=== PATIENT | male | born 1955 | race Caucasian/White ===

== ENCOUNTER 2019-05-19 06:46 | Emergency (ER) | payer OTHER ==
[~2019-05-19] VITALS: Ht 180.3 cm; Wt 103.6 kg
[2019-05-19] MEDS ORDERED: ISOVUE-370 76% 100ML VIAL (Q9967) As Ordered ONE (07:07)
[2019-05-19] MEDS ORDERED: NS 1,000 ML IV ONE (07:15)
[2019-05-19 07:26] LABS: BASO % 0.5 % (0.0-1.0); EOS # 0.2 10^3/uL (0.0-0.50); EOS % 2.1 % (0.0-3.0); HEMATOCRIT 44.9 % (42.0-52.0); HEMOGLOBIN 15.8 g/dl (13.5-17.5); LYMPH # 1.9 10^3/uL (1.5-4.5); LYMPH % 25.8 % (24.0-44.0); MEAN CORPUSCULAR HEMOGLOBIN 34.1 pg (27.0-33.0); MEAN CORPUSCULAR HGB CONC 35.2 g/dl (32.0-36.5); MEAN CORPUSCULAR VOLUME 96.8 fl (80.0-96.0); MONO # 0.8 10^3/uL (0.0-0.8); MONO % 11.3 % (0.0-5.0); NEUTROPHILS # 4.4 10^3/uL (1.8-7.7); NEUTROPHILS % 59.8 % (36.0-66.0); PLATELET COUNT, AUTOMATED 172 10^3/uL (150-450); RED BLOOD COUNT 4.64 10^6/uL (4.30-6.10); WHITE BLOOD COUNT 7.3 10^3/uL (4.0-10.0)
[2019-05-19] MEDS ORDERED: RA G1TAB11 PO (07:34)
[2019-05-19] MEDS ORDERED: FISH1000 PO (07:34)
[2019-05-19] MEDS ORDERED: MULT1TAB8 PO (07:34)
[2019-05-19] MEDS ORDERED: CVS1000C17 PO (07:34)
--- NOTE | 2019-05-19 07:59 | REPVR ---
EXAM: CT Chest With Contrast EXAM DATE/TIME: 05/19/2019 7:36 AM CLINICAL HISTORY: 63 years old, male; Other: Back pain; Additional info: Fall, left postr rib pain, luq pain - check poc chem8 TECHNIQUE: Imaging protocol: Computed tomography images of the chest with intravenous contrast. Radiation optimization: All CT scans at this facility use at least one of these dose optimization techniques: automated exposure control; mA and/or kV adjustment per patient size (includes targeted exams where dose is matched to clinical indication); or iterative reconstruction. Contrast material: ISOVUE 370; Contrast volume: 100 ml; Contrast route: IV; COMPARISON: CR Chest, 1 view 05/19/2019 7:16 AM (report not provided) FINDINGS: Lungs: Mild atelectasis/scarring is present in the left lower lobe. There are few scattered calcified granulomas bilaterally. Many of these are pleural-based. The lungs are otherwise clear. The central airways appear patent. Pleural space: No pleural effusion or pneumothorax. Heart: Unremarkable. No cardiomegaly. No pericardial effusion. Mediastinum: No mediastinal hematoma is identified. Aorta: The thoracic aorta is nonaneurysmal. Atherosclerotic vascular calcifications are noted. Lymph nodes: Unremarkable. No enlarged lymph nodes. Bones/joints: There are acute, mildly displaced fractures of the left 10th and 11th ribs posterolaterally. No other acute fracture the visualized skeleton is identified. Degenerative changes involve the spine and shoulders. Soft tissues: Unremarkable. Other findings: Dedicated abdominal CT has been performed, and findings below the diaphragm will be reported separately. IMPRESSION: Acute, displaced fractures of the left 10th and 11th ribs. No other evidence for acute intrathoracic injury. Electronically signed by: Julio Garcia On 05/19/2019 07:59:16 AM
--- NOTE | 2019-05-19 08:05 | REPVR ---
EXAM: CT Abdomen and Pelvis With Contrast EXAM DATE/TIME: 05/19/2019 7:36 AM CLINICAL HISTORY: 63 years old, male; Abdominal pain; Localized; Left upper quadrant (luq); Additional info: Fall, left postr rib pain, luq pain - check poc chem8 TECHNIQUE: Imaging protocol: Computed tomography images of the abdomen and pelvis with intravenous contrast. Radiation optimization: All CT scans at this facility use at least one of these dose optimization techniques: automated exposure control; mA and/or kV adjustment per patient size (includes targeted exams where dose is matched to clinical indication); or iterative reconstruction. Contrast material: ISOVUE 370; Contrast volume: 100 ml; Contrast route: IV; COMPARISON: CT ABD PELVIS W/O CONTRAST 12/09/2012 8:35 PM (report not provided) FINDINGS: Lungs: See separate chest CT report for findings above the diaphragm. Liver: The liver is again fatty in density. It appears otherwise unremarkable. Gallbladder and bile ducts: No gallstones are evident, but ultrasound would be more sensitive. No gross biliary ductal dilatation. Pancreas: Normal. No ductal dilation. Spleen: Multiple splenules are again present. The spleen itself appears unremarkable. Adrenals: Normal. No mass. Kidneys and ureters: The left kidney contains a 1.5 cm cyst. It appears otherwise unremarkable. The right kidney appears unremarkable. Stomach and bowel: The unopacified small bowel is not significantly distended to suggest obstruction. There is mild descending and sigmoid colonic diverticulosis without evidence for diverticulitis. The large bowel is otherwise grossly unremarkable in appearance. Appendix: No evidence of appendicitis. Intraperitoneal space: Normal. No free air. No significant fluid collection. Vasculature: The abdominal aorta is nonaneurysmal. The left renal vein is again retroaortic. Atherosclerotic vascular calcifications are again present. Lymph nodes: Normal. No enlarged lymph nodes. Bladder: Unremarkable as visualized. Reproductive: Unremarkable as visualized. Bones/joints: As on the chest CT, there are acute, mildly displaced fractures of the left 10th and 11th ribs. No other acute fracture the visualized skeleton is identified. Degenerative changes involve the spine and hips. Soft tissues: There are again small fat containing umbilical and bilateral inguinal hernias. IMPRESSION: 1. Acute fractures of the left 10th and 11th ribs. No other evidence for acute intra-abdominal or pelvic injury. 2. Mild left-sided colonic diverticulosis without evidence for diverticulitis. 3. Other nonurgent findings similar to 12/09/12 as described. Electronically signed by: Julio Garcia On 05/19/2019 08:04:40 AM
[2019-05-19] MEDS ORDERED: IBUP-1022 PO (08:11)
[2019-05-19] MEDS ORDERED: NORC1TAB7 PO (08:12)
[2019-05-19] MEDS ORDERED: IBUPROFEN 800 MG TAB PO ONE (08:15)
[2019-05-19] MEDS ORDERED: NORCO, ANEXSIA 5/325MG TABLET (HYDROcodone/ACETAMINOPHEN) PO ONE (08:15)
[2019-05-19 08:23] VITALS: BP 174/93
--- NOTE | 2019-05-19 10:07 | REP ---
Portable chest, single AP view with the patient sitting: There are no comparisons. There is no pneumothorax, hemothorax or pulmonary contusion. There is a faintly visible 11 ml nodular density peripherally in the left lung. Lung zaragoza are otherwise clear. Cardiac size is upper normal. The cas, mediastinum, and skeletal structures are unremarkable. Impression: No acute cardiopulmonary findings. Faintly visible nodular density in the left lung. Electronically Signed by Terence Nicole MD 05/19/2019 09:58 A
--- NOTE | 2019-05-19 19:36 | ED PDOC ---
Post-Departure Follow-Up certified letter sent to pt re formal read of cxr. see report. needs fu. obtain pcp name and fax.if no pcp refer to [facility] and fax report there Vlad Dumont MD May 19, 2019 19:36
== END 2019-05-19 08:32 | disposition home or self-care (01) ==
LOC: M ED 06:46
DX: S22.42XA Multiple fractures of ribs, left side, initial encounter for closed fracture (principal); W01.0XXA Fall on same level from slipping, tripping and stumbling without subsequent striking against object, initial encounter; Y92.092 Bedroom in other non-institutional residence as the place of occurrence of the external cause; Y93.89 Activity, other specified; Y99.9 Unspecified external cause status; R91.1 Solitary pulmonary nodule; K57.32 Diverticulitis of large intestine without perforation or abscess without bleeding; Z79.899 Other long term (current) drug therapy
CPT/HCPCS: 71045; 71260; 74177; 80047; 85025; 86850; 86900; 86901; 96360; 99284; Q9967

== ENCOUNTER → 2019-08-16 | Outpatient (CLI) | payer OTHER ==
[~2019-08-16] MED LIST: CVS1000C17 PO; FISH1000 PO; IBUP-1022 PO; MULT1TAB8 PO; NORC1TAB7 PO; RA G1TAB11 PO
--- NOTE | 2019-08-16 08:03 | REP ---
A right hip: Two views. History: Pain. Findings: There is moderate osteoarthritis of the right hip with significant superior joint space narrowing, sclerosis and osteophyte formation. Periarticular soft tissues are unremarkable. Femoral head remains rounded. Impression: Moderate osteoarthritis right hip. Electronically Signed by Tucker Odell MD 08/16/2019 09:48 A
== END ==
LOC: M RAD 07:28
PROVIDERS: ATTEND Family Medicine
DX: M25.551 Pain in right hip (principal)

== ENCOUNTER → 2019-09-14 | Outpatient (CLI) | payer OTHER ==
--- NOTE | 2019-09-14 08:04 | REP ---
Abdominal aortic sonography: History: Screening for abdominal aortic aneurysm. . Findings: Scanning through the retroperitoneum demonstrates that the abdominal aorta is normal in caliber at the level of the diaphragmatic hiatus measuring 2.6 x 2.9 cm in AP by transverse dimension respectively. The abdominal aorta is obscured by bowel gas at the level of the main renal arteries. The distal aorta tapers to 1.8 x 2.0 cm AP by transverse dimension. The right and left common iliac arteries are normal measuring 1.3 and 1.2 cm in AP dimension respectively. No aneurysm is seen. No periaortic disease is observed. Impression: Negative abdominal aortic sonography. Electronically Signed by Tucker Odell MD 09/14/2019 07:55 A
[2019-09-14 08:19] LABS: ALBUMIN 3.7 GM/DL (3.2-5.2); ALT/SGPT 36 U/L (12-78); BILIRUBIN,TOTAL 0.6 MG/DL (0.2-1.0); BLOOD UREA NITROGEN 10 MG/DL (7-18); CALCIUM LEVEL 9.3 MG/DL (8.8-10.2); CARBON DIOXIDE LEVEL 29 MEQ/L (21-32); CHLORIDE LEVEL 106 MEQ/L (98-107); CHOLESTEROL LEVEL 237 MG/DL (<200); CHOLESTEROL RISK RATIO 4.647 (<5); CREATININE FOR GFR 0.91 MG/DL (0.70-1.30); GLOMERULAR FILTRATION RATE > 60.0 (>49); GLUCOSE, FASTING 93 MG/DL (70-100); HDL CHOLESTEROL 51 MG/DL (>40); LDL CHOLESTEROL 161 MG/DL (<100); NON-HDL-C 186 MG/DL; POTASSIUM SERUM 4.2 MEQ/L (3.5-5.1); SODIUM LEVEL 140 MEQ/L (136-145); TOTAL PROTEIN 7.6 GM/DL (6.4-8.2); TRIGLYCERIDES LEVEL 123 MG/DL (<150)
== END ==
LOC: M RAD 07:21
PROVIDERS: ATTEND Family Medicine
DX: Z00.00 Encounter for general adult medical examination without abnormal findings (principal); Z12.5 Encounter for screening for malignant neoplasm of prostate; Z13.1 Encounter for screening for diabetes mellitus; Z13.220 Encounter for screening for lipoid disorders; Z13.6 Encounter for screening for cardiovascular disorders
CPT/HCPCS: 36415; 76775; 80053; 80061; 84443; G0103

== ENCOUNTER → 2019-09-18 | Outpatient (CLI) | payer OTHER ==
[2019-09-18 14:04] LABS: HEMATOCRIT 46.6 % (42.0-52.0); HEMOGLOBIN 16.5 g/dl (13.5-17.5); MEAN CORPUSCULAR HEMOGLOBIN 33.3 pg (27.0-33.0); MEAN CORPUSCULAR HGB CONC 35.4 g/dl (32.0-36.5); PLATELET COUNT, AUTOMATED 235 10^3/uL (150-450); RED BLOOD COUNT 4.96 10^6/uL (4.30-6.10); WHITE BLOOD COUNT 11.7 10^3/uL (4.0-10.0)
== END ==
LOC: M LAB 13:24
PROVIDERS: ATTEND Physician Assistant Medical
DX: R19.5 Other fecal abnormalities (principal)

== ENCOUNTER 2019-11-13 07:39 | Day surgery (SDC) | payer OTHER ==
[~2019-11-13] VITALS: Ht 180.3 cm; Wt 96.7 kg
[~2019-11-13 07:39] MED LIST changes: +CBD cream TOP; +NS 1,000 ML IV ONE; +VITA100054 PO; +propofoL 200 MG/20 ML VIAL As Ordered ONE
[2019-11-13] MEDS ORDERED: LIDOCAINE 2% INJ 100 MG/5 ML SDV (FOR ANES.) As Ordered ONE (07:40)
[2019-11-13] MEDS ORDERED: propofoL 200 MG/20 ML VIAL As Ordered ONE ×2 (08:50→09:09)
--- NOTE | 2019-11-13 09:31 | ROOR ---
Patient Name: Nimesh Desir Procedure Date: 11/13/2019 8:30 AM Date of : 1955 Age: 63 Room: [facility] Gender: Male Note Status: Finalized Procedure: Colonoscopy Indications: Positive Cologuard test Providers: David Rivas MD Referring MD: Melo Wang Do Requesting Provider: Medicines: Monitored Anesthesia Care Complications: No immediate complications. Procedure: Pre-Anesthesia Assessment: - Prior to the procedure, a History and Physical was performed, and patient medications and allergies were reviewed. The patient is competent. The risks and benefits of the procedure and the sedation options and risks were discussed with the patient. All questions were answered and informed consent was obtained. Patient identification and proposed procedure were verified by the physician, the nurse and the anesthesiologist in the procedure room. Mental Status Examination: alert and oriented. Airway Examination: normal oropharyngeal airway and neck mobility. Respiratory Examination: clear to auscultation. CV Examination: normal. Prophylactic Antibiotics: The patient does not require prophylactic antibiotics. Prior Anticoagulants: The patient has taken no previous anticoagulant or antiplatelet agents. ASA Grade Assessment: II - A patient with mild systemic disease. After reviewing the risks and benefits, the patient was deemed in satisfactory condition to undergo the procedure. The anesthesia plan was to use monitored anesthesia care (MAC). Immediately prior to administration of medications, the patient was re-assessed for adequacy to receive sedatives. The heart rate, respiratory rate, oxygen saturations, blood pressure, adequacy of pulmonary ventilation, and response to care were monitored throughout the procedure. The physical status of the patient was re-assessed after the procedure. The colonoscopy was performed without difficulty. The patient tolerated the procedure well. The quality of the bowel preparation was good. The terminal ileum, ileocecal valve, appendiceal orifice, and rectum were photographed. Scope insertion time was 2 minutes. Scope withdrawal time was 8 minutes. The total duration of the procedure was 10 minutes. The Colonoscope was introduced through the anus and advanced to the terminal ileum, with identification of the appendiceal orifice and IC valve. Findings: The perianal and digital rectal examinations were normal. The terminal ileum appeared normal. A 8 mm polyp was found in the cecum. The polyp was sessile. The polyp was removed with a hot snare. Resection and retrieval were complete. Verification of patient identification for the specimen was done by the physician and nurse using the patient's name, date and medical record number. Estimated blood loss was minimal. Eight sessile and semi-pedunculated polyps were found in the recto-sigmoid colon, descending colon, transverse colon and ascending colon. The polyps were 4 to 15 mm in size. These polyps were removed with a hot snare. Resection and retrieval were complete. A 20 mm polyp was found in the recto-sigmoid colon. The polyp was pedunculated. The polyp was removed with a hot snare. Resection and retrieval were complete. To close a defect after polypectomy, one hemostatic clip was successfully placed. There was no bleeding at the end of the procedure. Multiple small and large-mouthed diverticula were found from sigmoid to ascending colon. There was no evidence of diverticular bleeding. Non-bleeding external and internal hemorrhoids were found during retroflexion. The hemorrhoids were large. Impression: - The examined portion of the ileum was normal. - One 8 mm polyp in the cecum, removed with a hot snare. Resected and retrieved. - Eight 4 to 15 mm polyps at the recto-sigmoid colon, in the descending colon, in the transverse colon and in the ascending colon, removed with a hot snare. Resected and retrieved. - One 20 mm polyp at the recto-sigmoid colon, removed with a hot snare. Resected and retrieved. Clip was placed. - Severe diverticulosis from sigmoid to ascending colon. There was no evidence of diverticular bleeding. - Non-bleeding external and internal hemorrhoids. Recommendation: - Patient has a contact number available for emergencies. The signs and symptoms of potential delayed complications were discussed with the patient. Return to normal activities tomorrow. Written discharge instructions were provided to the patient. - Clear liquid diet for 1 day, then advance as tolerated to high fiber diet. - Continue present medications. - Miralax 1 capful (17 grams) in 8 ounces of water PO daily for 5 days. - Await pathology results. - Repeat colonoscopy in 1 - 3 years for surveillance based on pathology results. - Telephone GI clinic for pathology results in 2 weeks. - Telephone GI clinic if symptomatic tomorrow. - Return to primary care physician. David Rivas MD David Rivas MD 11/13/2019 9:31:19 AM Electronically signed by David Rivas MD Number of Addenda: 0 Note Initiated On: 11/13/2019 8:04 AM Estimated Blood Loss: Estimated blood loss was minimal.
[2019-11-13 09:51] VITALS: BP 134/70
== END 2019-11-13 13:26 | disposition home or self-care (01) ==
LOC: M OPP 07:39
PROVIDERS: ATTEND Internal Medicine Gastroenterology
DX: K64.8 Other hemorrhoids (principal); K63.5 Polyp of colon; K57.30 Diverticulosis of large intestine without perforation or abscess without bleeding; R19.5 Other fecal abnormalities; F17.210 Nicotine dependence, cigarettes, uncomplicated

== ENCOUNTER → 2021-01-02 | Outpatient (CLI) | payer MEDICARE, OTHER ==
[~2021-01-02] MED LIST changes: -NS 1,000 ML IV ONE; -propofoL 200 MG/20 ML VIAL As Ordered ONE
--- NOTE | 2021-01-02 09:37 | REP ---
INDICATION: PAIN. COMPARISON: Right rib series dated 08/16/2019. TECHNIQUE: AP view of the pelvis with the patient standing, single view; and right hip two views. FINDINGS: AP pelvis, patient standing: There is marked right hip osteoarthritis with virtually no remaining joint space superiorly with bone on bone. There is no flattening or deformity of the femoral head but there is very slight irregularity of the superior cortex. There is osteophytic growth. Right hip two views: There is marked joint space narrowing and mild irregularity the femoral head cortex and osteophytic growth compatible with advanced osteoarthritis. IMPRESSION: Advanced right hip osteoarthritis. She <Electronically signed by Terence Nicole > 01/02/21 0933
== END ==
LOC: M SOG 08:53
PROVIDERS: ATTEND Family Medicine
DX: M25.551 Pain in right hip (principal)

== ENCOUNTER 2021-01-10 12:19 | Outpatient (RCR) | payer MEDICARE ==
[2021-01-24] MEDS ORDERED: CO Q1CAP2 PO (12:09)
[2021-01-24] MEDS ORDERED: VITATAB73 PO (12:09)
[2021-01-24] MEDS ORDERED: RED600TA PO (12:09)
[2021-01-24] MEDS ORDERED: D-101000 PO (12:09)
== END 2021-01-24 ==
LOC: M PT 12:19
PROVIDERS: ATTEND Family Medicine
DX: M16.31 Unilateral osteoarthritis resulting from hip dysplasia, right hip (principal)

== ENCOUNTER → 2021-01-24 | Outpatient (CLI) | payer MEDICARE ==
[~2021-01-24] MED LIST changes: +CO Q1CAP2 PO; +D-101000 PO; +RED600TA PO; +VITATAB73 PO
[2021-01-24 09:14] LABS: HEMATOCRIT 48.1 % (42.0-52.0); HEMOGLOBIN 16.2 g/dl (13.5-17.5); MEAN CORPUSCULAR HEMOGLOBIN 32.1 pg (27.0-33.0); MEAN CORPUSCULAR HGB CONC 33.7 g/dl (32.0-36.5); MEAN CORPUSCULAR VOLUME 95.4 fl (80.0-96.0); PLATELET COUNT, AUTOMATED 208 10^3/uL (150-450); RED BLOOD COUNT 5.04 10^6/uL (4.30-6.10); WHITE BLOOD COUNT 9.7 10^3/uL (4.0-10.0)
[2021-01-24 09:38] LABS: ALBUMIN 4.1 GM/DL (3.2-5.2); ALT/SGPT 39 U/L (12-78); BILIRUBIN,TOTAL 0.6 MG/DL (0.2-1.0); BLOOD UREA NITROGEN 10 MG/DL (7-18); CARBON DIOXIDE LEVEL 31 MEQ/L (21-32); CHLORIDE LEVEL 103 MEQ/L (98-107); CREATININE FOR GFR 0.76 MG/DL (0.70-1.30); GLOMERULAR FILTRATION RATE > 60.0 (>49); GLUCOSE, FASTING 89 MG/DL (70-100); POTASSIUM SERUM 4.3 MEQ/L (3.5-5.1); SODIUM LEVEL 137 MEQ/L (136-145); TOTAL PROTEIN 7.7 GM/DL (6.4-8.2)
--- NOTE | 2021-01-24 10:08 | REP ---
INDICATION: UNILATERAL OSTEOARTHITIS RESULTING FROM HIP DYSPLASIA,- LABS 1ST COMPARISON: 05/19/2019. TECHNIQUE: PA/Lateral FINDINGS: Lungs: Clear, no infiltrate. Subtle calcified pleural plaques are again seen projecting over the mid lung zones. Heart: Normal in size. Mediastinum: Mediastinal silhouette unremarkable. Pleural angles: Unremarkable.. Bones and soft tissues: There are degenerative changes of the spine without compression deformity. IMPRESSION: No acute pulmonary disease. <Electronically signed by Terence Keene > 01/24/21 1000
== END ==
LOC: M LAB 07:52
PROVIDERS: ATTEND Student in an Organized Health Care Education/Training Program
DX: M16.31 Unilateral osteoarthritis resulting from hip dysplasia, right hip (principal); M25.551 Pain in right hip

== ENCOUNTER → 2021-01-30 | Outpatient (CLI) | payer OTHER, MEDICARE | LOC: M LABSMTC 09:59 | PROVIDERS: ATTEND Anesthesiology | DX: Z01.818 Encounter for other preprocedural examination (principal); Z11.52 Encounter for screening for COVID-19 ==

== ENCOUNTER 2021-02-04 06:00 | Inpatient (IN) | payer MEDICARE ==
[2021-02-04] VITALS (14 sets, daily range): BP systolic 104–141; BP diastolic 68–87
[~2021-02-04] VITALS: Ht 180.3 cm; Wt 103.1 kg
[~2021-02-04 06:00] MED LIST changes: +ACETAMINOPHEN 500 MG TAB PO ONE; +LR 1,000 ML IV ONE; +NAPROXEN 250 MG TAB PO ONE; +NS 1,000 ML IV SCH; +PREGABALIN 25 MG CAP (LYRICA) PO ONE; +TRANEXAMIC ACID INJection 1,000 MG in NS 50 ML IV ONE; +ceFAZolin SOD 2 GM in IV 1 EA IV ONE; +dexameTHASONE 4 MG/ML 1ML VIAL (J1100 PER 1MG) IV ONE
[2021-02-04] MEDS ORDERED: TRANEXAMIC ACID 100 MG/ML 10ML VIAL As Ordered ONE ×2 (07:11→07:19)
[2021-02-04] MEDS ORDERED: MIDAZOLAM INJ 2MG/2ML VIAL (J2250 PER 1MG) As Ordered ONE (08:04)
[2021-02-04] MEDS ORDERED: fentaNYL 100 MCG/2 ML INJECTION (J3010) As Ordered ONE ×2 (08:04→10:42)
[2021-02-04] MEDS ORDERED: propofoL 200 MG/20 ML VIAL As Ordered ONE ×2 (08:04→09:22)
[2021-02-04] MEDS ORDERED: LIDOCAINE 2% 100MG/5ML SDV (FOR ANES.) As Ordered ONE (08:04)
[2021-02-04] MEDS ORDERED: PHENYLephrine 500MCG 5ML (100MCG/ML) SYRINGE As Ordered ONE ×2 (08:35→09:22)
[2021-02-04] MEDS ORDERED: ePHEDrine SULFATE 25 MG/5 ML(5MG/ML) SYRINGE As Ordered ONE ×3 (08:35→09:22)
[2021-02-04] MEDS ORDERED: ONDANSETRON 4MG/2ML VIAL As Ordered ONE (08:45)
[2021-02-04] MEDS: ROPIVA 125MG/EPINEPH 0.25MG/CLONID 40MCG/KETOR 15MG IN NS 50ML SYRINGE IA SCH ×2 (10:08→10:09)
[2021-02-04] MEDS ORDERED: LR 1,000 ML IV SCH (11:20)
[2021-02-04] MEDS ORDERED: ONDANSETRON 4MG/2ML VIAL IV PRN ×2 (11:20→11:40)
[2021-02-04] MEDS ORDERED: oxyCODONE 5MG TAB PO PRN ×2 (11:20→11:35)
[2021-02-04] MEDS ORDERED: HYDROMORPHONE HCL 0.5 MG/ 0.5 ML SYRINGE (J1170 PER 1) IV PRN (11:20)
[2021-02-04] MEDS ORDERED: fentaNYL 100 MCG/2 ML INJECTION (J3010) IV PRN (11:20)
[2021-02-04] MEDS ORDERED: MORPHINE 10 MG/ML 1ML VIAL (J2270) IV PRN (11:30)
[2021-02-04] MEDS ORDERED: ACETAMINOPHEN TAB 650MG DOSE (2X325MG) PO PRN (11:30)
[2021-02-04] MEDS ORDERED: SENOKOT S TAB PO PRN (11:30)
[2021-02-04] MEDS ORDERED: MOM 30ML SUSPENSION UDC PO PRN (11:30)
[2021-02-04] MEDS ORDERED: PERCOCET 5MG/325MG TAB PO PRN ×2 (11:30)
[2021-02-04] MEDS ORDERED: traMADol 50 MG TAB PO PRN ×2 (11:40)
--- NOTE | 2021-02-04 11:41 | REP ---
INDICATION: POST OP IN PACU/ PELVIS LOW SET. COMPARISON: 01/02/2021. TECHNIQUE: AP view pelvis, single view right hip. FINDINGS: There is placement of a total right hip prosthesis which appears to be in good position. Osseous structures are intact and well aligned. Rounded calcification is seen lateral to the proximal right femur measuring approximately 1.5 cm in diameter. There is postsurgical air in the soft tissues lateral to the right hip. IMPRESSION: Right hip prosthesis as above. <Electronically signed by Terence Keene > 02/04/21 1134
[2021-02-04] MEDS ORDERED: SENNA 8.6 MG TAB (SENOKOT) PO PRN (11:50)
--- NOTE | 2021-02-04 12:12 | HPEPDOC ---
[facility] Medical History & Physical Date of Admission February 04, 2021 Date of Service: February 04, 2021 History and Physical CHIEF COMPLAINT: Right hip pain HISTORY OF PRESENT ILLNESS: 65-year-old with right hip oa with limitations of daily living failed on conservative mgt, tonsillectomy, varicose vein surgery and kidney stone removal, status post right hip replacement. Hospitalist was asked to admit the patient for observation, physical therapy and pain control. Patient denies weight gain, weight loss, changes in appetite, nausea, vomiting, diarrhea, abdominal pain, bright red blood per rectum, melena, black tarry stools. He denies any sore throat, visual changes, tinnitus, vertigo, bilateral upper and lower extremity weakness, paresthesias, shortness of breath, chest pain, pressure, tightness, palpitations, lightheadedness, near syncope. Denies any polyphagia, polydipsia, polyuria, dysuria, urgency, frequency. Right hip pain currently is 4 out of 10 on a pain scale and does not want any pain medications. He has no other complaints. 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 02/04/2001 SOCIAL HISTORY: , Lives alone, has a son who lives one hour away. He has a cane, walker expanded his deck in the back has some steps going into the home. Prior smoker, smokes less than a half a pack a day for several years and years ago. Denies any alcohol abuse, but had been drinking due to severe pain. Recently, no recreational drug use. Retired, previously worked as a marketing area manager FAMILY HISTORY: . Father alive, age 90 had a hip replacement and hypertension. Mother age 83 , unknown medical reasons ALLERGIES: Please see below. REVIEW OF SYSTEMS: 10 point review of systems negative aside from positive findings in HPI HOME MEDICATIONS: Please see below. PHYSICAL EXAMINATION: VITAL SIGNS: See below GENERAL APPEARANCE: No distress. No pallor, icterus or jaundice. HEENT: No JVD, thyromegaly or cervical lymphadenopathy. Pupils equally round and reactive to light and accommodation. Dry mucous membranes CARDIOVASCULAR: S1, S2, regular rate, rhythm LUNGS: Clear to auscultation. Air entry is equal bilaterally ABDOMEN: Positive bowel sounds, soft, nontender, nondistended. MUSCULOSKELETAL: Postop right hip. Skin warm, dry, well perfused, pink in color EXTREMITIES: No cyanosis, clubbing or pitting edema. No cyanosis, clubbing or pitting edema MICROBIOLOGY: Please see below. , IMAGING STUDIES: SEE BELOW ASSESSMENT: . .65-year-old with right hip OA, tonsillectomy, varicose vein surgery and kidney stone removal, status post right hip replacement. Hospitalist was asked to admit the patient for observation, physical therapy and pain control. Patient denies weight gain, weight loss, changes in appetite, nausea, vomiting, diarrhea, abdominal pain, bright red blood per rectum, melena, black tarry stools. He denies any sore throat, visual changes, tinnitus, vertigo, bilateral upper and lower extremity weakness, paresthesias, shortness of breath, chest pain, pressure, tightness, palpitations, lightheadedness, near syncope. Denies any polyphagia, polydipsia, polyuria, dysuria, urgency, frequency. Right hip pain currently is 4 out of 10 on a pain scale and does not want any pain medications. He has no other complaints. Right hip osteoarthritis limiting his activities of daily living. Status post right JOE -Postop management per orthopedic surgery including DVT prophylaxis. Pain control, bowel regimen. Perioperative antibiotics. Activity level -PTOT PMR consulted -When necessary morphine for breakthrough pain 1-2 tablets of Percocet as needed -Antiemetics as needed History kidney stones -Asymptomatic Obesity, BMI 30.7 -Complicating care Diet regular DVT prophylaxis and aspirin 81 mg twice a day per orthopedic surgical recommendations Disposition PT, OT A RU screen code status: full code Vital Signs Vital Signs Date Time Temp Pulse Resp B/P (MAP) Pulse Ox O2 Delivery O2 Flow Rate FiO2 02/04/21 06:42 96.3 86 18 144/84 (104) 97 Room Air Home Medications Scheduled Cholecalciferol (Vitamin D3) (Vitamin D3) 25 Mcg Capsule, 25 MCG PO DAILY Glucosam/Chond-MSM 2/C/D3/Jace (Xxlbrtrgod-Fasxwxxyyio-SMU Tab) 1 Each Tablet, 1 TAB PO DAILY Haugan-3 Fatty Acids/Fish Oil (Fish Oil 1,000 mg Capsule) 1 Each Capsule, 1 CAP PO DAILY Red Yeast Rice (Red Yeast Rice) 600 Mg Tablet, 1,200 MG PO DAILY Ubidecarenone (Co Q-10) 200 Mg Capsule, 200 MG PO DAILY Vitamin B Complex (Vitamin B Complex) 1 Each Tablet, 1 TAB PO DAILY Miscellaneous Medications Multivitamin (Multi-Vitamin Daily) 1 Each Tablet, 1 TAB PO Allergies Coded Allergies: No Known Allergies (Unverified , 01/24/21) A-FIB/CHADSVASC A-FIB History Current/History of A-Fib/PAF?: No Current PO Anticoag Therapy: No Age/Risk Factor Scoring CHADSVASC: CHADSVASC Response (Comments) Value Age Risk Factor Age 65-74 years old 1 Gender Risk Factor Male 0 Hx of CHF No 0 Hx of HTN No 0 Hx of Stroke/TIA/or VTE No 0 Hx of Diabetes No 0 Hx of Vascular Disease No 0 Total 1 Treatment Treatment ordered: NONE STEVE MCCOY MD February 04, 2021 11:34
[2021-02-04] MEDS: ASCORBIC ACID 500 MG TAB PO SCH (13:39)
[2021-02-04] MEDS: ACETAMINOPHEN TAB 650MG DOSE (2X325MG) PO SCH ×2 (13:40→18:48)
[2021-02-04] MEDS: LR 1,000 ML IV SCH ×2 (13:40→21:30)
--- NOTE | 2021-02-04 15:27 | ROOPDOC ---
[facility] Report Of Operation Report of Operation DATE OF PROCEDURE: 02/04/21 PREPROCEDURE DIAGNOSES: Right hip osteoarthritis. POSTPROCEDURE DIAGNOSES: Right hip osteoarthritis with coxa magna. PROCEDURE: Right total hip arthroplasty with MDM liner IC 10. Modifier 22:50% more time and 50% more physical effort was utilized during this procedure. As result of the patient's size and musculature surrounding the hip. This made the exposure difficult, as well as the dislocation of the femoral head.. SURGEON: Faraz Olivia MD TERMINAL OPERATIONS SUPERVISOR: Merary Wu LPN ANESTHESIA: Spinal. ESTIMATED BLOOD LOSS: Approximately less than 300 mL mL. COMPLICATIONS: No known complications. REMARKS: Striker components Accolade 127 degree neck angle hip stem. Size #7 stem length 114 mm Ceramic femoral head 28 mm +4 mm neck length Trident 2 tritanium 58 mm cup MDM liner, cementless, 46 mm Pentecostal MDM X3 insert, 28 mm iD for size 28/52, size 46F PROCEDURE NOTE: The patient was seen in the preoperative area and the right lower extremity was marked. I reviewed his recent past medical history. He is found to be grossly neurovascularly intact prior to surgery to the right lower extremity.. DESCRIPTION OF PROCEDURE: The patient was brought to the operating room and a surgical checklist was carried out. The patient was then positioned on the bed and a spinal anesthetic was carried out. The patient was then placed in the left lateral decubitus position and appropriately padded with an axillary roll as well as other padding as appropriate in the standard fashion. Once he was positioned in the left lateral decubitus position, the right lower extremity and hip were cleansed with a chlorhexidine brush followed by 2 times alcohol swab scrub followed by a hydrogen peroxide preparation of the right hip region. He then underwent 2 times chlorhexidine scrub preps. The patient then underwent a standard sterile prep and drape. A surgical safety checklist, and possible was carried out. Incision then began centered over the right greater trochanteric region. Skin was incised down through subcutaneous fat down to the fascial layer. The modified Hopkins approach was utilized and the fascia was split with the cautery. Casillas scissors were used to extend the split. Once the abductor muscles were identified, Casillas scissors were used to identify the neck region and splitting roughly around the anterior third and the posterior two thirds of the abductors and capsule. Electrocautery was used to carry this split through and down exposing in one layer. The greater trochanteric region. The proximal anterior portion of the femur was skeletonized in this fashion. Using electrocautery and reflecting the soft tissue layer. At that point, the lateral cautery was used to partially dis sected the capsule and soft tissues off of the neck and expose the acetabular rim. Hohmann retractors were placed. The head was demonstrated to be significantly large with coxa magna. There was some large proximal trochanteric anterior osteophytes which were removed with a rongeur. Once sufficient soft tissue had been removed in order to allow dislocation of the hip, a Steinmann pin was placed in the pelvis just proximal to the acetabular rim through the soft tissue stab incision. A similar Steinmann pin w as used to mallet. A dimple into the proximal greater trochanter region. This was measured to allow comparison of leg length intraoperatively. Several times were made at attempting to dislocate the femoral head. The femoral head demonstrated some coxa magna, so this was quite difficult. There is also difficulty in exposing the hip joint as a result of the patient's muscular bulk. Overall, the exposure and dissection took at least twice as long as typically performed. Once a Woodson was used to help identify the joint space around the femoral head. It was able to be dislocated. It was quite significant in size. The Homans were used to protect the soft tissues and the femoral neck cut was performed. The head was removed and the rongeur was used to remove additional osteophytes from around the proximal femoral trochanteric region. Soft tissue was removed with electrocautery. The leg was then placed straight along the side and anterior, posterior retractors were utilized. Electrocautery was used to remove the labr um. This was quite difficult as the hip joint was quite deep. Given the size of the patient. This took a significant portion of time, at least twice as long as it typically does. In order to remove the soft tissue and clear out the hip for reaming. I travel to the opposite side of the bed to get better visualization and to remove more soft tissue. There was a deep bleeder from the soft tissue that took several minutes to cauterize due to issues with exposure. Overall, the approach was difficult in this patient given his size. Once the acetabulum was cleared and exposed. I used a 52 mm reamer to start and reamed up to a 58 mm reamer. I did ream slightly through the medial wall, so acetabular reaming bone graft was placed into the medial wall of the cup and impacted there with a dry sponge. The 58 mm cup was opened and using the alignment guides on the offset cloth tearer, the cup was placed appropriately and impacted. This was removed and found to be in good position. The dual mobility liner was then placed. There is a little bit of difficulty placing this due to some soft tissue. However, this was overcome and the MDM liner was placed and impacted. A Sorrento was used to try to test this to see if it was loose and was found to be stable. 2 g of topical tranexamic acid was applied and topped up with saline to cover the joint for approximately 3 minutes. There was then turned to the femur. I travel to the posterior side of the patient's and a femoral elevator was placed, avoiding any contact of the sciatic nerve. The proximal femur. Posterior laterally was exposed with electrocautery and a rongeur was used to clear the bone in this area. The box osteotome was then used to remove proximal portion of bone to allow the canal finder, which was placed easily. Broaching started and was carried up to a size 7 using the broach to help lateralize the component. The size 7 broach was placed. This was trialed with the lower offset and standard head neck combination. He was found to be some loose shock with this, so this was treated out for the 127 higher offset neck angle and a +4 mm neck insert was placed for the dual mobility trial. This was reduced using a hip skid. This found really get a good range of motion with no dislocation, or laxity noted. The measure demonstrated that the leg length was restored using the acetabular pin and the johanna on the greater trochanter. The trial components were removed and the final components were chosen. An irrigation then occurred with placement of dilute Betadine solution. The local anesthetic cocktail was then instilled to the soft tissues in the posterior capsular region. The #7 Accolade 2 femoral stem was impacted. There is no evidence of any periprosthetic fracture or otherwise. The trunion was cleaned and dried. The MDM head combination was impacted and tested and re-impacted. Betadine was applied to the wound edges and the hip skid was used to place the head into the cup and reduced into the acetabular component. This was taken through a range of motion and found to be stable and appropriate. There was no significant shuck. The leg length appeared to be restored on measure again. The pelvic Steinmann pin was th en removed. The wound was irrigated. Closure of the capsular region was carried out with a #1 Vicryl using interrupted sutures. Closure of the capsule and gluteus minimus and medius abductor tendons was carried out using the #1 Vicryl in an interrupted and running manner. The fascia was closed with a #1 Vicryl and then followed by a #1 strata fixed barbed suture. Irrigation was carried out between layers. Betadine was then applied to the wound and irrigated out. Interrupted #1 Vicryl sutures were used to close the subcutaneous layer. A running 2. 0 Vicryl suture was then used the close the subcuticular layer, and this was followed by an antibacterial 3. 0 Monocryl in the subcutaneous cuticular layer. Mastisol and Steri-Strips were then applied after an irrigation and cleansing and drying of the skin surface. The 1 cm incision for the Steinmann pin was painted with Betadine and then closed with interrupted Monocryl sutures, 3.0 antibacterial. This was then dried. The Mepilex dressing was placed over both of the incisions and reinforced where needed with Tegaderm The drapes were then removed carefully. The patient was transferred to a bed under my supervision and taken to recovery room in stable condition with the anesthetic reversing. X-ray imaging and PACU demonstrated a right total hip arthroplasty in good position without any obvious signs of complication. The patient had appropriate orders from myself. He will be seen by the hospitalist team for admission. The plan will be to discharge inflation home to [place] if he is cleared by physical therapy with appropriate home care, nursing, PT and OT. He will be seen in clinic in approximately 2 weeks' time for reassessment. He will mobilize weightbearing as tolerated with a walker. The dressing will stay in position for 7 days. Any gross soiling should be reported to the surgeon and reinforced initially. FARAZ OLIVIA MD February 04, 2021 15:27
[2021-02-04] MEDS ORDERED: CALCIUM CARBONATE 500 MG CHEW U/D PO ONE (16:30)
[2021-02-04] MEDS: ceFAZolin SOD 2 GM in IV 1 EA IV SCH (16:58)
[2021-02-04] MEDS ORDERED: GI COCKTAIL 50ML BTL(HYOSCYAMINE/MAALOX/LIDOCAINE VISCOUS)(1:3:1) PO ONE (18:00)
[2021-02-04] MEDS: ASPIRIN 81MG ENTERIC TABLET PO SCH (20:21)
[2021-02-04] MEDS: NAPROXEN 250 MG TAB PO SCH (20:21)
[2021-02-04] MEDS: DOCUSATE SODIUM 100MG CAPSULE PO SCH (20:21)
[2021-02-04] MEDS ORDERED: GI COCKTAIL 50ML BTL(HYOSCYAMINE/MAALOX/LIDOCAINE VISCOUS)(1:3:1) PO PRN (23:00)
[2021-02-05] VITALS (7 sets, daily range): BP systolic 92–129; BP diastolic 51–71
[2021-02-05] MEDS: ceFAZolin SOD 2 GM in IV 1 EA IV SCH (00:30)
[2021-02-05] MEDS: ACETAMINOPHEN TAB 650MG DOSE (2X325MG) PO SCH ×4 (00:31→17:13)
[2021-02-05] MEDS: CALCIUM CARBONATE 500 MG CHEW U/D PO PRN ×3 (01:42→20:42)
[2021-02-05 06:36] LABS: HEMATOCRIT 34.6 % (42.0-52.0); HEMOGLOBIN 11.9 g/dl (13.5-17.5); MEAN CORPUSCULAR HEMOGLOBIN 32.3 pg (27.0-33.0); MEAN CORPUSCULAR HGB CONC 34.4 g/dl (32.0-36.5); PLATELET COUNT, AUTOMATED 207 10^3/uL (150-450); RED BLOOD COUNT 3.68 10^6/uL (4.30-6.10); WHITE BLOOD COUNT 25.5 10^3/uL (4.0-10.0)
[2021-02-05 07:07] LABS: BLOOD UREA NITROGEN 15 MG/DL (7-18); CALCIUM LEVEL 8.8 MG/DL (8.8-10.2); CARBON DIOXIDE LEVEL 29 MEQ/L (21-32); CHLORIDE LEVEL 104 MEQ/L (98-107); CHOLESTEROL LEVEL 174 MG/DL (<200); CHOLESTEROL RISK RATIO 3.411 (<5); CREATININE FOR GFR 0.89 MG/DL (0.70-1.30); GLOMERULAR FILTRATION RATE > 60.0 (>49); GLUCOSE, FASTING 111 MG/DL (70-100); HDL CHOLESTEROL 51 MG/DL (>40); LDL CHOLESTEROL 111 MG/DL (<100); NON-HDL-C 123 MG/DL; POTASSIUM SERUM 4.3 MEQ/L (3.5-5.1); SODIUM LEVEL 136 MEQ/L (136-145); TRIGLYCERIDES LEVEL 62 MG/DL (<150)
[2021-02-05] MEDS: LR 1,000 ML IV SCH (07:30)
[2021-02-05] MEDS: FERROUS SULFATE 325MG TAB PO SCH (08:36)
[2021-02-05] MEDS: DOCUSATE SODIUM 100MG CAPSULE PO SCH ×2 (08:36→20:42)
[2021-02-05] MEDS: ASCORBIC ACID 500 MG TAB PO SCH (08:36)
[2021-02-05] MEDS: ASPIRIN 81MG ENTERIC TABLET PO SCH ×2 (08:37→20:43)
[2021-02-05] MEDS: NAPROXEN 250 MG TAB PO SCH ×2 (08:37→20:46)
[2021-02-05] MEDS: MIRALAX *UNIT DOSE* 17GM PACKET PO SCH (08:37)
--- NOTE | 2021-02-05 09:04 | IPNPDOC ---
Text Note Date of Service The patient was seen on 02/05/21. NOTE Patient is postop day 1 from a right total hip arthroplasty. Overall, the patient is doing quite well. He states that he is only been taking Tylenol for pain. He does have some stiffness and some difficulty with hip flexion and abduction which is perfectly normal in the postoperative period. He is able to flex his hip and knee up. He has been standing with the walker. He jones s reported some dizziness and lightheadedness when he sits up and stands up. He states that this happened with previous surgeries on his rib fractures, etc. X-ray imaging from the PACU demonstrated the right total hip arthroplasty in position without any obvious signs of complication. On physical examination, the patient is moving his right foot and ankle with sensation grossly intact. He has a palpable posterior tibial pulse. His right hip dressing was examined. This appeared to be intact without any drainage; however, at the proximal portion. There was a little bit of blood under the Tegaderm adhesive part of the dressing. It was concerned that this would eventually leaked through. So I made the decision to do a dressing change this morning. Dressing change: The Mepilex dressing was removed. There was a little bit of some blood at the proximal portion staining the Steri-Strips. The wound edges and dressing were cleansed with a chlorhexidine swab. A wash with a sterile saline soaked gauze was then applied to the wound edges. This was allowed to dry. The Betadine was placed over the incision line on top of the Steri-Strips. A separate Telfa and Tegaderm dressing was placed over the stab incision for the Steinmann pin. The Mepilex dressing was then applied over the incision line. This appeared to have a good seal. Overall, the patient appears to be doing quite well. Nursing brought to my attention that he did have an elevated white blood cell count; however, this is perfectly normal in the postoperative period. The patient will mobilize with physical therapy and hopefully he'll be able to be discharged home today. The patient will be discharged home with home care for nursing; physical therapy and occupational therapy. Please see discharge instructions below for the patient. Discharge Instructions Total Hip Arthroplasty 1. Pain: You may take the medication as prescribed for pain. Supplement with ibuprofen and Tylenol as needed. Ice pack to operative hip as tolerated. 2. Wound care: Remove dressing on postop day 7. Call [phone] with any questions or concerns. Hygiene: The patient may shower. No tub baths. Check dressing seal prior to bathing. 3. Activity: WBAT right lower extremity. Front wheeled walker versus crutches for ambulation. Fall precautions. Anterolateral hip precautions (NO figure of 4/crossing legs, combined external rotation/extension, combined internal rotation/abduction). 4. Driving: No driving until cleared by your surgeon. Do not drive if taking narcotic pain medications as these may make you drowsy. 5. DVT Prophylaxis: Continue taking aspirin 81 mg by mouth twice a day as prescr ibed for the prevention of blood clots. Ankle pumps every 1 hour while awake. PHILIPP hose at all times for 1 month after surgery. May remove for hygiene and wound care. 6. Placement: Plan is to discharge patient to home with home health including nursing and physical therapy. 7. Surgeon Follow-up: The patient is scheduled to be seen in Dr. Olivia's office 2 weeks post op with xrays. 8. Primary care Follow-up: Please see your primary care provider in the next 2 to 5 weeks for general medical re-evaluation and medication review. 9. Labs: CBC without differential and BMP to be drawn pod 3 with results to PCP and please fax to [phone]. 10. Please contact [facility] if you have any questions or concerns at [phone]. VS,Fishbone, I+O VS, Fishbone, I+O Laboratory Tests 02/05/21 06:04 Vital Signs Date Time Temp Pulse Resp B/P (MAP) Pulse Ox O2 Delivery O2 Flow Rate FiO2 02/05/21 08:51 18 Room Air 02/05/21 06:59 97.5 78 113/61 (15) 95 I&O- Last 24 Hours up to 6 AM 02/05/21 05:59 Intake Total 5630 ml Output Total 775 ml Balance 4855 ml ANNELIESE OLIVIA MD February 05, 2021 09:03
[2021-02-05 09:06] LABS: HEMOGLOBIN A1c 5.2 %
[2021-02-05] MEDS: MIDODRINE 5 MG TAB PO SCH ×3 (10:00→15:27)
[2021-02-05] MEDS ORDERED: NS 1,000 ML IV ONE ×3 (10:00→16:55)
[2021-02-05 10:14] LABS: BASO # 0.1 10^3/uL (0.0-0.2); BASO % 0.2 % (0.0-1.0); HEMATOCRIT 34.6 % (42.0-52.0); HEMOGLOBIN 12.1 g/dl (13.5-17.5); LYMPH # 2.7 10^3/uL (1.5-5.0); LYMPH % 10.7 % (24.0-44.0); MEAN CORPUSCULAR HEMOGLOBIN 32.7 pg (27.0-33.0); MEAN CORPUSCULAR VOLUME 93.5 fl (80.0-96.0); MONO # 2.7 10^3/uL (0.0-0.8); MONO % 10.3 % (2.0-8.0); PLATELET COUNT, AUTOMATED 213 10^3/uL (150-450)
--- NOTE | 2021-02-05 10:37 | REPVR ---
PROCEDURE INFORMATION: Exam: CT Head Without Contrast Exam date and time: 02/05/2021 10:22 AM Age: 65 years old Clinical indication: Syncope and collapse; Additional info: Syncope AMS TECHNIQUE: Imaging protocol: Computed tomography of the head without contrast. Radiation optimization: All CT scans at this facility use at least one of these dose optimization techniques: automated exposure control; mA and/or kV adjustment per patient size (includes targeted exams where dose is matched to clinical indication); or iterative reconstruction. COMPARISON: No relevant prior studies available. FINDINGS: Brain: There is mild ill-defined patchy hypodensity within the bilateral cerebral periventricular white matter, consistent with chronic microvascular ischemic changes. There is mild diffuse cerebral atrophy present, consistent with this patient's age. Cerebral ventricles: The ventricular system demonstrates mild diffuse compensatory enlargement. Bones/joints: Unremarkable. No acute fracture. Paranasal sinuses: Visualized sinuses are unremarkable. No fluid levels. Mastoid air cells: Visualized mastoid air cells are well aerated. Soft tissues: Unremarkable. IMPRESSION: 1. No acute infarction, masses or hemorrhage is seen. No acute intracranial abnormality is identified. 2. Diffuse age-related cerebral atrophy and mild chronic microvascular white matter ischemic changes. 3. [place] Stroke Program Early CT Score (ASPECTS) = 10 Electronically signed by: Yury Contreras On 02/05/2021 10:37:15 AM
--- NOTE | 2021-02-05 10:44 | REP ---
INDICATION: [id number]. COMPARISON: 01/24/2021. TECHNIQUE: Single portable AP view of the chest was performed. FINDINGS: There is no acute infiltrate or pulmonary edema. Lungs are clear. The heart is not significantly enlarged. The mediastinal silhouette is unremarkable. The visualized osseous structures are intact.There are small calcified pleural plaques superiorly bilaterally. IMPRESSION: No acute pulmonary disease. <Electronically signed by Terence Keene > 02/05/21 [id number]
[2021-02-05 10:47] LABS: WHITE BLOOD COUNT 25.6 10^3/uL (4.0-10.0)
[2021-02-05 10:48] LABS: ERYTHROCYTE SEDIMENTATION RATE 13 mm/hr (0-20)
[2021-02-05] MEDS ORDERED: oxyCODONE 10 MG CR TAB PO SCH (12:50)
[2021-02-05] MEDS: oxyCODONE 10 MG CR TAB PO SCH ×2 (13:21→20:43)
--- NOTE | 2021-02-05 13:23 | IPN ---
PROGRESS NOTE DATE: 02/05/2021 SUBJECTIVE: Patient had a syncopal episode yesterday. Appeared to be vasovagal and was found to be orthostatic. Another episode this morning while working with physical therapy. Complained of diaphoresis, feeling lightheaded prior to the episode. Glucose level was 111. On metabolic panel this morning, patient was found to be orthostatic and was given intravenous fluids 1 liter intravenous (IV) bolus. He was transferred to the telemetry unit for further monitoring. PHYSICAL EXAMINATION: VITAL SIGNS: Temperature 97.4, pulse 75, respiratory rate 18, blood pressure is 125/66, 95% on room air. GENERAL: Awake, alert, oriented to person, place, and time. Anicteric. No pallor. No cyanosis. HEENT: Pupils round and reactive to light and accommodation. Extraocular muscles are intact. Moist mucous membranes. No jugular venous distention (JVD), thyromegaly, cervical lymphadenopathy. Face is symmetric. Tongue is midline. Speech is fluent. LUNGS: Clear to auscultation. No wheezing, rales, or rhonchi. HEART: S1, S2, sinus rhythm. ABDOMEN: Obese, soft, nontender, nondistended. Positive bowel sounds. No costovertebral angle (CVA) tenderness. EXTREMITIES: Right hip postoperative. No cyanosis, clubbing, or pitting edema. LABORATORY DATA: Microbiology and imaging studies have been reviewed. ASSESSMENT AND PLAN: This is a 65-year-old admitted on February 04 due to right hip severe osteoarthritis with limitations of activities of daily living, status post right hip replacement, postoperative day #1. IMPRESSION: 1. Right hip replacement secondary to degenerative joint disease, which failed with conservative management and limited ADLs. Orthopedic surgery for perioperative management including perioperative antibiotics, being controlled. Tramadol has been discontinued due to worsening pain. He is now on oxycodone 10 every 4 as needed and OxyContin controlled release 10 twice a day. Titrate as needed. Bowel regimen. Deep venous thrombosis (DVT) prophylaxis and physical therapy (PT)/occupational therapy (OT) acute rehabilitation unit (ARU) screen. 2. Orthostatic hypotension causing syncopal episode. Patient has been given midodrine and IV fluids. Vital signs every 4 hours until negative orthostasis. Patient has been transferred to progressive care unit (PCU) under telemetry monitoring. 3. Fall precautions. Assisted ambulation only.
[2021-02-06] VITALS (8 sets, daily range): BP systolic 97–149; BP diastolic 54–88
[2021-02-06] MEDS: ACETAMINOPHEN TAB 650MG DOSE (2X325MG) PO SCH ×4 (00:06→15:55)
[2021-02-06] MEDS ORDERED: NS 1,000 ML IV ONE (05:25)
[2021-02-06 06:18] LABS: HEMATOCRIT 30.9 % (42.0-52.0); HEMOGLOBIN 10.3 g/dl (13.5-17.5); MEAN CORPUSCULAR HEMOGLOBIN 32.2 pg (27.0-33.0); MEAN CORPUSCULAR HGB CONC 33.3 g/dl (32.0-36.5); MEAN CORPUSCULAR VOLUME 96.6 fl (80.0-96.0); PLATELET COUNT, AUTOMATED 174 10^3/uL (150-450)
--- NOTE | 2021-02-06 07:06 | IPNPDOC ---
Text Note Date of Service The patient was seen on 02/06/21. NOTE Postop day 2, right total hip arthroplasty. Yesterday, while the patient was working with physical therapy. He states that he started to feel lightheaded and had to move back to the bed quickly and lie back. He essentially had a syncopal episode as he was returning to the bed. He states that he did not fall to the ground. This was witnessed. He underwent several examinations and workups, as ordered by the hospitalist service. He does state that as I had suggested to him. His pain would be much more severe when he started working with physical therapy the day after surgery. His pain medications were adjusted by the hospitalist service. He did not do a lot of physical therapy yesterday. As a result of his syncopal episode. He reports that he is passing gas. He is urinating without any pain or discomfort. He has not had a bowel movement yet, but he has not had a lot to eat. Overall, the patient states that he has episodes like these related to medical issues in the past. He denies any orthostatic hypotension. I seen this before with patient's reacting to the perioperative medications including the anesthetic, and perhaps this is the issue with this patient. He states that his symptoms are improving. He will continue to work with physical therapy. His right foot and ankle is grossly neurovascularly intact. The dressing that was replaced yesterday is in position. There is a dime-sized area of staining, which is of no concern. This will be monitored. Patient will continue to work with therapy. He is being followed by the hospitalist service, With regards to his medical workup. VS,Fishbone, I+O VS, Fishbone, I+O Laboratory Tests 02/05/21 09:55 02/06/21 05:01 Vital Signs Date Time Temp Pulse Resp B/P (MAP) Pulse Ox O2 Delivery O2 Flow Rate FiO2 02/06/21 04:00 90 121/56 (77) 100 124/60 (81) 96 111/54 (73) 02/05/21 20:43 18 02/05/21 13:21 Room Air 02/05/21 10:36 97.4 95 I&O- Last 24 Hours up to 6 AM 02/06/21 05:59 Intake Total 4540 ml Output Total 2820 ml Balance 1720 ml ANNELIESE OLIVIA MD February 06, 2021 07:06
[2021-02-06 07:17] LABS: BLOOD UREA NITROGEN 13 MG/DL (7-18); C REACTIVE PROTEIN QUANTITATIV 8.47 MG/DL (0.00-0.30); CALCIUM LEVEL 8.4 MG/DL (8.8-10.2); CARBON DIOXIDE LEVEL 29 MEQ/L (21-32); CHLORIDE LEVEL 108 MEQ/L (98-107); CREATININE FOR GFR 0.63 MG/DL (0.70-1.30); GLOMERULAR FILTRATION RATE > 60.0 (>49); GLUCOSE, FASTING 84 MG/DL (70-100); POTASSIUM SERUM 4.3 MEQ/L (3.5-5.1); SODIUM LEVEL 140 MEQ/L (136-145)
[2021-02-06 07:23] LABS: BASO % 0.2 % (0.0-1.0); EOS # 0.1 10^3/uL (0.0-0.5); EOS % 0.5 % (0.0-3.0); LYMPH # 2.4 10^3/uL (1.5-5.0); LYMPH % 18.4 % (24.0-44.0); MONO # 1.8 10^3/uL (0.0-0.8); MONO % 13.8 % (2.0-8.0); NEUTROPHILS # 8.9 10^3/uL (1.5-8.5); NEUTROPHILS % 66.6 % (36.0-66.0)
[2021-02-06 08:05] LABS: ERYTHROCYTE SEDIMENTATION RATE 34 mm/hr (0-20)
[2021-02-06] MEDS: MIRALAX *UNIT DOSE* 17GM PACKET PO SCH (08:06)
[2021-02-06] MEDS: FERROUS SULFATE 325MG TAB PO SCH (08:07)
[2021-02-06] MEDS: ASPIRIN 81MG ENTERIC TABLET PO SCH ×2 (08:07→19:59)
[2021-02-06] MEDS: NAPROXEN 250 MG TAB PO SCH ×2 (08:08→19:59)
[2021-02-06] MEDS: MIDODRINE 5 MG TAB PO SCH ×3 (08:09→16:00)
[2021-02-06] MEDS: DOCUSATE SODIUM 100MG CAPSULE PO SCH ×2 (08:09→19:58)
[2021-02-06] MEDS: ASCORBIC ACID 500 MG TAB PO SCH (08:09)
[2021-02-06 08:11] LABS: PLATELET ESTIMATE NORMAL (NORMAL)
[2021-02-06] MEDS ORDERED: oxyCODONE 5MG TAB PO ONE (08:40)
[2021-02-06] MEDS ORDERED: oxyCODONE 15 MG CR TAB PO SCH (09:00)
[2021-02-06] MEDS ORDERED: oxyCODONE 5MG TAB PO SCH (13:00)
[2021-02-06] MEDS: NS 1,000 ML IV SCH (18:55)
[2021-02-06] MEDS: CALCIUM CARBONATE 500 MG CHEW U/D PO PRN (19:59)
[2021-02-06] MEDS: oxyCODONE 5MG TAB PO PRN (20:00)
[2021-02-07] MEDS: oxyCODONE 5MG TAB PO PRN ×4 (00:19→13:04)
[2021-02-07 00:23] VITALS: BP 138/65
[2021-02-07 04:04] VITALS: BP 132/63
[2021-02-07] MEDS: NS 1,000 ML IV SCH ×2 (04:08→14:15)
[2021-02-07 04:45] LABS: HEMATOCRIT 31.5 % (42.0-52.0); HEMOGLOBIN 10.4 g/dl (13.5-17.5); MEAN CORPUSCULAR VOLUME 96.9 fl (80.0-96.0); PLATELET COUNT, AUTOMATED 185 10^3/uL (150-450); RED BLOOD COUNT 3.25 10^6/uL (4.30-6.10)
[2021-02-07] MEDS: ACETAMINOPHEN TAB 650MG DOSE (2X325MG) PO SCH ×3 (05:22→13:05)
[2021-02-07 06:00] VITALS: BP 133/67
--- NOTE | 2021-02-07 07:30 | IPN ---
PROGRESS NOTE DATE: 02/07/2021 SUBJECTIVE: The patient says that he often has prodromal symptoms such as diaphoresis, lightheadedness, or dizziness prior to passing out that especially occurs when he is in pain, anxious, or stressed out. This has happened multiple times in the past. The patient had a similar episode here yesterday prompting transfer to PCU under telemetry monitoring. The patient was found to be orthostatic, he was given IV fluids and midodrine with some improvement. He currently denies any dizziness or lightheadedness this morning. No chest pain, pressure, tightness, or palpitations. The patient is eating and drinking okay. No other issues on telemetry. He remains sinus rhythm with ventricular rate of 79 to 102 with episodes of sinus tachycardia when he gets up and walks around. The patient has been working with physical therapy and says that his pain is still uncontrolled rating at an 8/10. He has only received OxyContin controlled release 10 mg b.i.d. and has not been taking advantage of the breakthrough pain with morphine, as well as oxycodone 10 q. four hourly as needed. The patient denies any constipation or abdominal pain this morning. OBJECTIVE: VITAL SIGNS: Temperature 97.4, pulse 79, respiratory rate 18, blood pressure 107/64, pulse ox 95% on room air. GENERAL: Awake, alert, and oriented x3. Face is symmetric. Tongue is midline. Speech is fluent. HEENT: No JVD, thyromegaly, or cervical lymphadenopathy. LUNGS: Clear to auscultation. No wheezing, rales, or rhonchi. HEART: S1, S2. Sinus tachycardia. ABDOMEN: Soft, nontender, and nondistended with positive bowel sounds. EXTREMITIES: Postop right hip. No cyanosis or clubbing. SKIN: Warm, dry, and well-perfused. LABORATORY DATA: White count 13, hemoglobin 10, hematocrit 30, platelet count 174,000. Sodium 140, potassium 4.3, chloride 108, bicarb 29, BUN 13, creatinine 0.63, glucose 84. C-reactive protein of 8.47. Procalcitonin is pending. Prolactin is 33 (normal is 2.1 to 17.7). Microbiology: Urinalysis negative. IMAGING DATA: Chest x-ray with no acute finding. CT of the head with no acute abnormality. ASSESSMENT: This is a 65-year-old male admitted on 02/04 due to severe right hip osteoarthritis with limitations of activities of daily living status post right hip replacement, admitted as an inpatient for pain control. Postoperative day #2, the patient developed vasovagal syncope while on the medical floor, transferred to telemetry unit, and found to be orthostatic. Current issues are as follows: 1. Vasovagal syncope secondary to severe pain. 2. Orthostatic hypotension. 3. Right hip severe osteoarthritis status post right hip replacement postop day #2 with pain uncontrolled. 4. Elevated prolactin level, rule out partial seizures. PLAN: The patient remains under telemetry, but remains tachycardic when he stands and walks around. Remains with orthostatic hypotension treated with midodrine and IV fluids. Yesterday with significant improvement. Pain is not well-controlled. OxyContin controlled release has been increased to 15 mg b.i.d. and oxycodone per patient request has been changed to q. four and the patient may refuse if the pain is controlled. He is to have an EEG done today. CT of the head was negative. No empiric antiepileptic medications. Will discuss with neurology if abnormal findings are found on the electroencephalogram. Echocardiogram has been ordered to rule out structural valvular disease as the cause for patient's syncopal episode; however, according to the patient's clinic symptoms and history with recurrent episodes at home, this is most likely vasovagal syncope brought on by stress, anxiety, and pain. Continue with physical therapy (PT), occupational therapy (OT), and acute rehabilitation unit (ARU) referral. Discharge home if EEG is negative, echo report is available, and cleared by physical therapy for home.
[2021-02-07] MEDS ORDERED: ASCO50TA PO (08:31)
[2021-02-07] MEDS ORDERED: ASPI-551 PO (08:31)
[2021-02-07] MEDS ORDERED: FERR1TAB8 PO (08:31)
[2021-02-07] MEDS ORDERED: NAPR-849 PO (08:31)
[2021-02-07] MEDS ORDERED: OXYC-517 PO (08:31)
[2021-02-07] MEDS ORDERED: SENN18TA PO (08:31)
[2021-02-07] MEDS: DOCUSATE SODIUM 100MG CAPSULE PO SCH (08:51)
[2021-02-07] MEDS: FERROUS SULFATE 325MG TAB PO SCH (08:51)
[2021-02-07] MEDS: ASCORBIC ACID 500 MG TAB PO SCH (08:51)
[2021-02-07] MEDS: NAPROXEN 250 MG TAB PO SCH (08:51)
[2021-02-07] MEDS: MIRALAX *UNIT DOSE* 17GM PACKET PO SCH (08:51)
[2021-02-07] MEDS: ASPIRIN 81MG ENTERIC TABLET PO SCH (08:52)
--- NOTE | 2021-02-07 08:55 | EEG ---
ELECTROENCEPHALOGRAM DATE: 02/06/2021 DIAGNOSIS: Syncope, rule out seizure. EEG# [id number]. REFERRING PHYSICIAN: Faraz Palacio M.D. HISTORY: Patient is a 65-year-old man who was admitted at [facility] due to a passing out spell. This EEG was done to rule out epileptic potential. He is currently taking oxycodone, midodrine, aspirin, tramadol, Senna, etc. TECHNICAL DESCRIPTION: This digital EEG was recorded by 21-scalp, ear, and two EKG electrodes and was reviewed in bipolar and referential montages following reformatting in 10-20 international electrode placement system. INTERPRETATION: Patient was noted to be in awake and drowsy states during this EEG. Resting and awake background rhythm consisted of 9 Hz alpha activity measuring 15-40 microvolts in amplitude, which was symmetric and reactive to eye opening. Attenuation of posterior dominant rhythm was seen during transition into drowsiness. No sleep was achieved. Hyperventilation was not performed. Photic stimulation remained unremarkable. EKG revealed normal sinus rhythm. No focal, lateralizing, or epileptiform abnormalities were seen. No relevant clinical activity was noted. CONCLUSION: This EEG in awake and drowsy states is within normal limits.
[2021-02-07] MEDS ORDERED: MIDO10TA PO (09:40)
[2021-02-07] MEDS ORDERED: MIDODRINE 5 MG TAB PO SCH (09:45)
--- NOTE | 2021-02-07 10:11 | DSES ---
DISCHARGE SUMMARY DATE OF ADMISSION: 02/04/2021 DATE OF DISCHARGE: 02/07/2021 DISCHARGE DIAGNOSIS: 1. Right hip osteoarthritis with limitations of activities of daily living status post right total hip replacement. 2. Vasovagal syndrome. 3. Orthostatic hypotension. 4. Anemia of chronic disease. 5. Reactive leukocytosis with no signs of infection. 6. Rule out seizure activity with negative electroencephalogram. CONSULTANTS DURING THIS ADMISSION: Orthopedic Surgeon, Dr. Faraz Palacio. PROCEDURES DURING THIS ADMISSION: Right hip replacement. DISCHARGE INSTRUCTIONS: Patient is referred to Dr. Bey regarding recurrent vasovagal syncope, orthostatic hypotension, to rule out POTS, primary care physician appointment within five days, orthopedic surgery appointment within one week, activity with walker, commode at beside and home Physical Therapy. HOSPITAL COURSE: This is a 65-year-old male with severe osteoarthritis of the right hip, underwent right hip replacement. Postoperatively, was admitted for observation, pain control and rehab evaluation. Postoperatively, patient developed orthostatic hypotension with two episodes of vasovagal syncope and was subsequently transferred to PCU for monitoring. He was given IV fluids and Midodrine with significant improvement and resolution of his orthostasis. CT of the head was negative. An electroencephalogram was negative for seizure activity despite elevated prolactin level of 33. Clinical exam did not show any significant valvular disease. No signs of aortic stenosis or severe regurgitation. Telemetry remained in sinus rhythm without episodes of atrial fibrillation or A-flutter. Patient did have episodes of tachycardia, ventricular rate of 102 at the most documented. Patient worked with Physical Therapy with no other issues. TSH level was normal on 1.09. He is discharged in stable condition with outpatient referral to Cardiology regarding recurrent vasovagal syncope or orthostasis to rule out possible orthostatic tachycardia syndrome. PHYSICAL EXAMINATION: VITAL SIGNS: On discharge, temperature 98, pulse 85, respiratory rate is 20, blood pressure is 139/65, 95% on room air. GENERAL: Awake, alert and oriented x3, answering questions appropriately. HEENT: Face is symmetric. Tongue is midline. NECK: No JVD, thyromegaly or cervical lymphadenopathy. HEENT: Moist mucous membranes. NECK: No carotid bruit or stridor. LUNGS: Clear to auscultation. No wheezing, rales or rhonchi. Air entry is equal. No kyphosis or scoliosis. ABDOMEN: Soft, nontender and nondistended. Positive bowel sounds. No rebound or guarding. No hepatosplenomegaly. EXTREMITIES: Postop right hip. No cyanosis or clubbing. No pitting edema. SKIN: Warm, dry and well-perfused, pink in color. LABORATORY DATA: White count 12, hemoglobin 10, hematocrit 31, platelet count 185,000. Sodium 140, potassium 4.3, chloride 108, bicarbonate 29, BUN 13, creatinine 0.63, glucose of 84, C-reactive protein of 8.47, prolactin of 33. IMAGING STUDIES: CT of the head on 02/05/2021: No acute infarct, mass or hemorrhage. No acute intracranial abnormality, age related cerebral atrophy and mild chronic microvascular white matter changes. A chest x-ray on 02/05/21: No acute cardiopulmonary disease. Pelvic x-ray on 02/04/21: Right hip prosthesis. Time spent on discharge: 30 minutes MTDD
--- NOTE | 2021-02-10 16:08 | IPNPDOC ---
Text Note Date of Service The patient was seen on 02/07/21. NOTE The patient was seen on the date of his discharge. He states that he had been improving with his pain management with the long-acting medications. His incision dressing was clean and dry with an unchanged dime-sized spot of staining. He is grossly neurovascular intact to the right lower extremity. The patient is planned for discharge home today Note: The patient was seen on 02/07/2021 and the note was dictated on 02/10/2021 VS,Damian, I+O VS, Sukie, I+O Vital Signs Date Time Temp Pulse Resp B/P (MAP) Pulse Ox O2 Delivery O2 Flow Rate FiO2 02/07/21 13:34 20 02/07/21 08:52 Room Air 02/07/21 06:00 98.6 85 133/67 (89) 95 ANNELIESE OLIVIA MD February 10, 2021 16:08
== END 2021-02-07 14:38 | disposition home or self-care (01) | DRG 470 ==
LOC: M SDC 06:00 → EDSTATUS 07:30 → M MS5PR 11:00 → M PCU 02-05 10:15 → M MSPAV 02-07 06:04 → M SDC 02-07 14:38
PROVIDERS: ADMIT General Practice; ATTEND General Practice
PROC: 0SR90JA Replacement of Right Hip Joint with Synthetic Substitute, Uncemented, Open Approach (ICD-10-PCS; principal; 2021-02-04 07:30)
DX: M16.11 Unilateral primary osteoarthritis, right hip (principal); I95.81 Postprocedural hypotension; D63.8 Anemia in other chronic diseases classified elsewhere; R55 Syncope and collapse; E66.9 Obesity, unspecified; Z68.30 Body mass index [BMI] 30.0-30.9, adult; Z87.442 Personal history of urinary calculi; D72.829 Elevated white blood cell count, unspecified

== ENCOUNTER → 2021-02-18 | Outpatient (CLI) | payer MEDICARE ==
[~2021-02-18] MED LIST changes: -ACETAMINOPHEN 500 MG TAB PO ONE; +ASCO50TA PO; +ASPI-551 PO; +FERR1TAB8 PO; -LR 1,000 ML IV ONE; +MIDO10TA PO; +NAPR-849 PO; -NAPROXEN 250 MG TAB PO ONE; -NS 1,000 ML IV SCH; +OXYC-517 PO; -PREGABALIN 25 MG CAP (LYRICA) PO ONE; +SENN18TA PO; -TRANEXAMIC ACID INJection 1,000 MG in NS 50 ML IV ONE; -ceFAZolin SOD 2 GM in IV 1 EA IV ONE; -dexameTHASONE 4 MG/ML 1ML VIAL (J1100 PER 1MG) IV ONE
--- NOTE | 2021-02-18 12:14 | REP ---
INDICATION: F/U COMPARISON: None. TECHNIQUE: Incomplete AP view of the pelvis with neutral and frog-lateral views of the right hip. FINDINGS: Patient is status post right hip replacement with normal appearance of the acetabular and femoral components. Underlying age-related degenerative changes to the visualized portions of the pelvis and proximal femurs. IMPRESSION: Normal appearance of the right hip replacement. Underlying age-related degenerative changes. <Electronically signed by Tiburcio Mercado > 02/18/21 [id number]
== END ==
LOC: M SOG 11:08
PROVIDERS: ATTEND Orthopaedic Surgery Adult Reconstructive Orthopaedic Surgery
DX: Z48.89 Encounter for other specified surgical aftercare (principal); Z96.641 Presence of right artificial hip joint

== ENCOUNTER → 2023-09-29 | Outpatient (CLI) | payer MEDICARE ==
[~2023-09-29] MED LIST changes: +SENN-111 PO; -SENN18TA PO
[2023-09-29 17:13] LABS: HEMATOCRIT 48.8 % (42.0-52.0); HEMOGLOBIN 16.7 g/dl (13.5-17.5); MEAN CORPUSCULAR HEMOGLOBIN 32.9 pg (27.0-33.0); MEAN CORPUSCULAR HGB CONC 34.2 g/dl (32.0-36.5); MEAN CORPUSCULAR VOLUME 96.1 fl (80.0-96.0); PLATELET COUNT, AUTOMATED 189 10^3/uL (150-450); RED BLOOD COUNT 5.08 10^6/uL (4.30-6.10); WHITE BLOOD COUNT 10.4 10^3/uL (4.0-10.0)
[2023-09-29 17:31] LABS: ALBUMIN 4.1 G/DL (3.2-5.2); ALKALINE PHOSPHATASE 86 U/L (46-116); ALT/SGPT 41 U/L (7.0-40); AST/SGOT 38 U/L (<34); BILIRUBIN,TOTAL 0.5 MG/DL (0.3-1.2); BLOOD UREA NITROGEN 10 MG/DL (9-23); CALCIUM LEVEL 9.5 MG/DL (8.3-10.6); CARBON DIOXIDE LEVEL 28 MMOL/L (20-31); CHLORIDE LEVEL 103 MMOL/L (98-107); CREATININE FOR GFR 0.66 MG/DL (0.70-1.30); GLOMERULAR FILTRATION RATE > 60.0 (>49); GLUCOSE, FASTING 87 MG/DL (74-106); POTASSIUM SERUM 4.4 MMOL/L (3.5-5.1); SODIUM LEVEL 138 MMOL/L (136-145); TOTAL PROTEIN 7.4 G/DL (5.7-8.2)
== END ==
LOC: M WUC 12:46
PROVIDERS: ATTEND Student in an Organized Health Care Education/Training Program
DX: R53.83 Other fatigue (principal)

== ENCOUNTER → 2023-11-16 | Outpatient (CLI) | payer MEDICARE ==
[2023-11-16 13:40] LABS: URIC ACID 5.2 MG/DL (3.7-9.2)
[2023-11-16 13:42] LABS: C REACTIVE PROTEIN QUANTITATIV < 0.40 MG/DL (<1.0)
[2023-11-16 13:43] LABS: BASO % 0.4 % (0.0-1.0); EOS # 0.1 10^3/uL (0.0-0.5); EOS % 0.7 % (0.0-3.0); HEMATOCRIT 46.4 % (42.0-52.0); HEMOGLOBIN 16.2 g/dl (13.5-17.5); LYMPH # 1.8 10^3/uL (1.5-5.0); LYMPH % 19.2 % (24.0-44.0); MEAN CORPUSCULAR HEMOGLOBIN 33.5 pg (27.0-33.0); MEAN CORPUSCULAR HGB CONC 34.9 g/dl (32.0-36.5); MEAN CORPUSCULAR VOLUME 96.1 fl (80.0-96.0); MONO # 1.1 10^3/uL (0.0-0.8); MONO % 12.2 % (2.0-8.0); NEUTROPHILS # 6.2 10^3/uL (1.5-8.5); NEUTROPHILS % 67.2 % (36.0-66.0); PLATELET COUNT, AUTOMATED 211 10^3/uL (150-450); RED BLOOD COUNT 4.83 10^6/uL (4.30-6.10); WHITE BLOOD COUNT 9.2 10^3/uL (4.0-10.0)
[2023-11-16 13:48] LABS: HEPATITIS B SURFACE ANTIBODY NEGATIVE (POSITIVE)
[2023-11-16 13:51] LABS: ERYTHROCYTE SEDIMENTATION RATE 17 mm/hr (0-20)
[2023-11-16 14:13] LABS: HIV 1&2 SCREEN NEGATIVE (NEGATIVE)
[2023-11-17 23:10] LABS: HEPATITIS B CORE ANTIBODY IGG Negative (Negative); IgG P18 AB Absent (.); IgG P23 AB Absent (.); IgG P28 AB Absent (.); IgG P30 AB Absent (.); IgG P39 AB Absent (.); IgG P41 AB Absent (.); IgG P45 AB Absent (.); IgG P66 AB Absent (.); IgG P93 AB Absent (.); IgM P23 AB Absent (.); IgM P39 AB Absent (.); IgM P41 AB Absent (.); LYME IgG WB INTERPRETATION Negative (.); LYME IgM WB INTERPRETATION Negative (.)
== END ==
LOC: M PLAIMG 09:06 → M PLALAB 09:06
PROVIDERS: ATTEND Internal Medicine Infectious Disease
DX: Z11.59 Encounter for screening for other viral diseases (principal); Z72.89 Other problems related to lifestyle; M25.561 Pain in right knee; R74.01 Elevation of levels of liver transaminase levels
CPT/HCPCS: 36415; 73564; 82172; 83010; 83883; 84550; 85025; 85652; 86140; 86617; 86704; 86706; 87340; 87389; G0472

== ENCOUNTER → 2024-03-16 | Outpatient (REF) | payer MEDICARE | LOC: M LABWUC 11:11 | PROVIDERS: ATTEND Student in an Organized Health Care Education/Training Program | DX: R53.83 Other fatigue (principal) ==

== ENCOUNTER → 2024-08-16 | Outpatient (CLI) | payer MEDICARE ==
[~2024-08-16] MED LIST changes: -MIDO10TA PO; +MIDO10TA3 PO; -SENN-111 PO; +SENN-165 PO
[2024-08-16 08:36] LABS: HEMOGLOBIN A1c 5.4 % (4.0-6.0)
[2024-08-16 09:04] LABS: ALBUMIN 3.7 G/DL (3.2-5.2); ALKALINE PHOSPHATASE 69 U/L (40-129); ALT/SGPT 22 U/L (7.0-40); AST/SGOT 14 U/L (<34); BILIRUBIN,TOTAL 0.5 MG/DL (0.3-1.2); BLOOD UREA NITROGEN 12 MG/DL (9-23); CALCIUM LEVEL 9.8 MG/DL (8.3-10.6); CARBON DIOXIDE LEVEL 29 MMOL/L (20-31); CHLORIDE LEVEL 103 MMOL/L (98-107); CHOLESTEROL LEVEL 229 MG/DL (<200); CHOLESTEROL RISK RATIO 4.44 (<5); CREATININE FOR GFR 0.76 MG/DL (0.70-1.30); GLOMERULAR FILTRATION RATE > 60.0 (>42); GLUCOSE, FASTING 134 MG/DL (74-106); HDL CHOLESTEROL 51.5 MG/DL (>40); LDL CHOLESTEROL 145.7 MG/DL (<100); NON-HDL-C 177.5 MG/DL; POTASSIUM SERUM 4.3 MMOL/L (3.5-5.1); SODIUM LEVEL 139 MMOL/L (136-145); TRIGLYCERIDES LEVEL 159 MG/DL (<150)
== END ==
LOC: M RAD 06:48
PROVIDERS: ATTEND Family Medicine
DX: Z87.891 Personal history of nicotine dependence (principal); E78.00 Pure hypercholesterolemia, unspecified

== ENCOUNTER → 2025-07-26 | Outpatient (CLI) | payer MEDICARE ==
[~2025-07-26] MED LIST changes: +CEFU50TA PO; +CYCL1DRO10 OU; -IBUP-1022 PO; +IBUP600T42 PO; +LISD20CA PO; +ROSU5TAB49 PO
[2025-07-26 13:06] LABS: ALT/SGPT 26 U/L (7.0-40); AST/SGOT 25 U/L (<34); C REACTIVE PROTEIN QUANTITATIV < 0.50 MG/DL (<1.0); CALCIUM LEVEL 9.5 MG/DL (8.3-10.6); CARBON DIOXIDE LEVEL 30 MMOL/L (20-31); CHLORIDE LEVEL 105 MMOL/L (98-107); CHOLESTEROL LEVEL 169 MG/DL (<200); CHOLESTEROL RISK RATIO 2.98 (<5); CREATININE FOR GFR 0.82 MG/DL (0.70-1.30); GLOMERULAR FILTRATION RATE > 90.0 (>42); LDL CHOLESTEROL 95.3 MG/DL (<100); NON-HDL-C 112.3 MG/DL; POTASSIUM SERUM 4.6 MMOL/L (3.5-5.1); SODIUM LEVEL 142 MMOL/L (136-145); TRIGLYCERIDES LEVEL 85 MG/DL (<150)
== END ==
LOC: M WUC 08:15
PROVIDERS: ATTEND Family Medicine
DX: M25.50 Pain in unspecified joint (principal); J90 Pleural effusion, not elsewhere classified; E78.00 Pure hypercholesterolemia, unspecified